=== PATIENT | male | born 1965 | race Caucasian/White ===

== ENCOUNTER 2021-03-10 07:58 | Emergency (ER) | payer OTHER ==
[~2021-03-10] VITALS: Ht 167.6 cm; Wt 83.9 kg
[2021-03-10] MEDS ORDERED: ERYT1OIN RIGHTEYE (09:00)
== END 2021-03-10 09:40 | disposition home or self-care (01) ==
LOC: ER 07:58
DX: S05.01XA Injury of conjunctiva and corneal abrasion without foreign body, right eye, initial encounter (principal); W22.8XXA Striking against or struck by other objects, initial encounter
CPT/HCPCS: 99283; A9270